=== PATIENT | female | born 1985 | race Caucasian/White ===

== ENCOUNTER 2018-07-19 06:21 | Day surgery (SDC) | payer OTHER ==
[~2018-07-19 06:21] MED LIST: PRENATABS RX TA1 TAB PO; ZANTAC 7575 MG PO
== END 2018-07-19 17:44 | disposition home or self-care (01) ==
LOC: CIR.AMB 06:21
DX: O34.32 Maternal care for cervical incompetence, second trimester (principal); Z3A.16 16 weeks gestation of pregnancy

== ENCOUNTER 2018-08-19 04:33 | Outpatient (CLI) | payer OTHER | END 2018-08-19 09:05 | disposition home or self-care (01) | LOC: OBS/DEL 04:33 | DX: O34.32 Maternal care for cervical incompetence, second trimester (principal); O35.8XX0 Maternal care for other (suspected) fetal abnormality and damage, not applicable or unspecified; Z34.82 Encounter for supervision of other normal pregnancy, second trimester ==

== ENCOUNTER 2018-12-20 07:23 | Outpatient (CLI) | payer OTHER ==
[~2018-12-20 07:23] MED LIST changes: +PRENATABS RX T1 EACH PO; -PRENATABS RX TA1 TAB PO
== END 2018-12-20 11:11 | disposition home or self-care (01) ==
LOC: OBS/DEL 07:23
DX: O34.33 Maternal care for cervical incompetence, third trimester (principal)

== ENCOUNTER 2019-01-03 05:39 | Inpatient (IN) | payer OTHER ==
[~2019-01-03] VITALS: Ht 154.9 cm; Wt 99.8 kg
== END 2019-01-05 13:13 | disposition home or self-care (01) | DRG 807 ==
LOC: OB/GYN 05:39 → LDR 05:39 → OB/GYN 14:18
PROVIDERS: ADMIT Obstetrics & Gynecology
PROC: 10E0XZZ Delivery of Products of Conception, External Approach (ICD-10-PCS; principal; 2019-01-03)
PROC: 0UQGXZZ Repair Vagina, External Approach (ICD-10-PCS; 2019-01-03)
PROC: 4A1HXCZ Monitoring of Products of Conception, Cardiac Rate, External Approach (ICD-10-PCS; 2019-01-03)
DX: O71.4 Obstetric high vaginal laceration alone (principal); Z37.0 Single live birth; Z3A.39 39 weeks gestation of pregnancy

== ENCOUNTER 2019-03-21 05:39 | Day surgery (SDC) | payer OTHER | END 2019-03-21 12:25 | disposition home or self-care (01) | LOC: CIR.AMB 05:39 → ADM 07:00 → CIR.AMB 09:15 | DX: Z30.2 Encounter for sterilization (principal) ==